=== PATIENT | female | born 1980 | race Two or more races ===

== ENCOUNTER 2022-10-27 10:58 | Emergency (ER) | payer OTHER ==
[~2022-10-27] VITALS: Ht 157.5 cm; Wt 67.1 kg
[2022-10-27 11:08] VITALS: BP 119/80
--- NOTE | 2022-10-27 11:42 | NUR ---
Patient discharged to home in stable condition. Written and verbal after care instructions given. Patient verbalizes understanding of instruction.
== END 2022-10-27 11:42 | disposition home or self-care (01) ==
LOC: ER 11:01
DX: F41.0 Panic disorder [episodic paroxysmal anxiety] (principal); T41.3X5A Adverse effect of local anesthetics, initial encounter; Y92.89 Other specified places as the place of occurrence of the external cause